=== PATIENT | female | born 1990 | race African-American/Black ===

== ENCOUNTER 2018-10-14 08:22 | Emergency (ER) | payer MEDICAID, OTHER, SELFPAY ==
[~2018-10-14] VITALS: Ht 154.9 cm; Wt 111.1 kg
[~2018-10-14 08:22] MED LIST: CETI10TA22 PO; MIRENA
[2018-10-14 08:29] VITALS: BP 115/68
--- NOTE | 2018-10-14 08:38 | PHYS DOC ---
Past Medical History Past Medical History: No Pertinent History Past Surgical History: No Surgical History Alcohol Use: Occasionally Drug Use: None Adult General Chief Complaint Chief Complaint: PAIN ON URINATION HPI HPI Patient is a 27 year old female who presents with complaining of for urination. Patient complaining of painful urination for the last 2 weeks with urinary frequency and states she had hematuria since yesterday. Patient states she had history of UTIs frequently and seen in this emergency room one month ago with the same symptoms. She denies fever and chills, vomiting, diarrhea and constipation, vaginal discharge and bleeding and . Review of Systems Review of Systems Constitutional: Denies fever or chills [] Eyes: Denies change in visual acuity, redness, or eye pain [] HENT: Denies nasal congestion or sore throat [] Respiratory: Denies cough or shortness of breath [] Cardiovascular: No additional information not addressed in HPI [] GI: Denies abdominal pain, vomiting, bloody stools or diarrhea, reports nausea [] : Dysuria and frequency Musculoskeletal: Denies back pain or joint pain [] Integument: Denies rash or skin lesions [] Neurologic: Denies headache, focal weakness or sensory changes [] Endocrine: Denies polyuria or polydipsia [] All other systems were reviewed and found to be within normal limits, except as documented in this note. Allergies Allergies Allergies Coded Allergies Type Severity Reaction Last Updated Verified Penicillins Allergy Intermediate RASH/HIVES 08/11/15 No Physical Exam Physical Exam Constitutional: Well developed, well nourished, mild distress, non-toxic appearance. [] HENT: Normocephalic, atraumatic, oropharynx moist. Eyes: PERRLA, EOMI, conjunctiva normal, no discharge. [] Neck: Normal range of motion, no tenderness, supple, no stridor. [] Cardiovascular:Heart rate regular rhythm, no murmur [] Lungs & Thorax: Bilateral breath sounds clear to auscultation [] Abdomen: Bowel sounds normal, soft, no tenderness, no masses, no pulsatile masses. [] Skin: Warm, dry, no erythema, no rash. [] Back: No tenderness, no CVA tenderness. [] Extremities: No tenderness, no cyanosis, no clubbing, ROM intact, no edema. [] Neurologic: Alert and oriented X 3, normal motor function, normal sensory function, no focal deficits noted. [] Psychologic: Affect normal, judgement normal, mood normal. [] Current Patient Data Vital Signs Vital Signs Date Time Temp Pulse Resp B/P (MAP) Pulse Ox O2 Delivery O2 Flow Rate FiO2 10/14/18 08:29 98.0 74 16 115/68 (84) 100 Room Air 98.0 Lab Values Laboratory Tests Test 10/14/18 08:23 Urine Color Red Urine Clarity Clear Urine pH Urine Specific [place] Urine Protein mg/dL (NEG-TRACE) Urine Glucose (UA) mg/dL (NEG) Urine Ketones (Stick) mg/dL (NEG) Urine Blood (NEG) Urine Nitrite (NEG) Urine Bilirubin (NEG) Urine Urobilinogen Dipstick mg/dL (0.2 mg/dL) Urine Leukocyte Esterase (NEG) Urine RBC 1-2 /HPF (0-2) Urine WBC Occ /HPF (0-4) Urine Squamous Epithelial Cells Many /LPF Urine Bacteria 0 /HPF (0-FEW) Urine Mucus Marked /LPF EKG EKG [] Radiology/Procedures Radiology/Procedures [] Course & Med Decision Making Course & Med Decision Making Pertinent Labs reviewed. (See chart for details) Evaluation of patient in ER showed 27-year-old female patient with complaining of painful urination for 2 weeks. Patient currently taking Azo. UA did not show infection. Patient for about test results and prescription for pain medication and Pyridium was given. Patient also has a prescription for Abx to use in future if needed Dragon Disclaimer Dragon Disclaimer This electronic medical record was generated, in whole or in part, using a voice recognition dictation system. Departure Departure Impression: Primary Impression: Dysuria Disposition: HOME, SELF-CARE (at 0922) Condition: STABLE Referrals: NO PCP (PCP) Patient Instructions: Dysuria Additional Instructions: Drink plenty of liquids Follow-up with your primary care physician in 3-5 days Return to ER if not getting better Scripts Phenazopyridine Hcl (PYRIDIUM) 100 Mg Tablet 100 MG PO TID for dysuria, #10 TAB Prov: CHASITY MEEK MD 10/14/18 Naproxen (NAPROSYN) 500 Mg Tablet 1 TAB PO BID for pain, #20 TAB Prov: CHSAITY MEEK MD 10/14/18 Ciprofloxacin Hcl (CIPRO) 250 Mg Tablet 1 TAB PO BID for infection, #14 TAB Prov: CHASITY MEEK MD 10/14/18 CHASITY MEEK MD October 14, 2018 08:38
[2018-10-14 09:02] LABS: CLARITY,URINE CLEAR; COLOR,URINE RED
[2018-10-14 09:06] LABS: BACTERIA,URINE 0 /HPF (0-FEW); SQUAMOUS EPITHELIAL CELL,UR MANY /LPF; WBC,URINE OCC /HPF (0-4)
[2018-10-14] MEDS ORDERED: CIPR250T30 PO (09:26)
[2018-10-14] MEDS ORDERED: PHEN100T82 PO (09:26)
[2018-10-14] MEDS ORDERED: NAPR-683 PO (09:26)
== END 2018-10-14 09:39 | disposition home or self-care (01) ==
LOC: ER 08:22
DX: R30.0 Dysuria (principal); R31.9 Hematuria, unspecified; R35.0 Frequency of micturition; Z88.0 Allergy status to penicillin
CPT/HCPCS: 81001; 99283